=== PATIENT | male | born 1945 | race Caucasian/White ===

== ENCOUNTER 2017-09-02 09:58 | Emergency (ER) | payer MEDICARE, BC ==
[2017-09-02] MEDS ORDERED: Morphine INJ* 4 MG/ML 1 ML CARPUJECT IV ONE (10:39)
[2017-09-02] MEDS ORDERED: Ondansetron INJ* 2 MG/ML VIAL IV ONE (10:39)
[2017-09-02] MEDS ORDERED: LORazepam INJ* 2 MG/ML 1 ML VIAL IV ONE (11:55)
[2017-09-02] MEDS ORDERED: HYDROmorphone INJ* 1 MG/ML CARPUJECT SYRINGE IV ONE (11:55)
--- NOTE | 2017-09-02 12:59 | ED ---
Francisco Arias Stephanie, scribed for Amanuel Cruz MD on 09/02/17 at 1043 . Back Pain - HPI Summary HPI Summary: The pt is a 72 y/o M presenting to the ED with c/o back pain that began after lifting heavy wood. The pt reports the pain began on the R side of his lower back and radiates to his middle and L back and down the L leg. The pain is described as a sharp character and as intermittent spasms. He rates the pain as a 10 in severity. Symptoms include sleep disturbances, radiating pain to lower extremities, and pain within the gluteal region. The pt denies urinary incontinence, hematuria and GI incontinence. The pt reports a history of lower lumbar subluxation. He denies completing x-rays for this incident. The pt received a muscle relaxer from PCP. The patients reports that the pt has restless leg syndrome. Aggravating factors include sitting up. The pt reports having a liver transplant 1.5 years ago. - History of Current Complaint Chief Complaint: EDBackInjuryPain Stated Complaint: BACK PAIN,NO SLEEP FOR 1 WEEK Time Seen by Provider: 09/02/17 10:17 Hx Obtained From: Patient Onset/Duration: Sudden Onset, Lasting Days - 5, Still Present Onset/Duration: Started Days Ago - 5, Still Present Timing: Constant Back Pain Location: Is Discrete @ - R and L lower back, Radiates To - lower extremities bilaterally Severity Currently: Severe Pain Intensity: 10 Pain Scale Used: 0-10 Numeric Character: Sharp, Spasmodic Aggravating Symptom(s): Movement, Other - sitting up Alleviating Symptom(s): Nothing Associated Signs And Symptoms: Positive: Other - loewr extremity pain, gluteal pain. Negative: Swelling - calf - Allergies/Home Medications Allergies/Adverse Reactions: Allergies Allergy/AdvReac Type Severity Reaction Status Date / Time Bee Venom Allergy Swelling Verified 02/20/16 11:35 PMH/Surg Hx/FS Hx/Imm Hx Endocrine/Hematology History: Denies: Hx Anticoagulant Therapy, Hx Diabetes Cardiovascular History: Reports: Hx Hypertension - ON MEDS Denies: Hx Pacemaker/ICD, Other Cardiovascular Problems/Disorders Respiratory History: Denies: Other Respiratory Problems/Disorders GI History: Comment Only: Other GI Disorders - ULCERATIVE COLITIS, Hep C, liver transplant History: Denies: Hx Renal Disease, Other Problems/Disorders Musculoskeletal History: Denies: Other Musculoskeletal History Sensory History: Reports: Hx Cataracts - STUART, Hx Contacts or Glasses - GLASSES Denies: Hx Hearing Aid Opthamlomology History: Reports: Hx Cataracts - STUART, Hx Contacts or Glasses - GLASSES Psychiatric History: Denies: Hx Panic Disorder - Cancer History Cancer Type, 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 liver bx, 1996, [facility]. cyst removed from back;. 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 [facility], 2010, RIGHT SHOULDER. HERNIA, [facility], 2013. HERNIA 2011;. SHOULDER ATHROSCOPY 2009; Hx Anesthesia Reactions: No Infectious Disease History: No Infectious Disease History: Reports: Hx Hepatitis - HEP C Denies: Traveled Outside the [place] in Last 30 Days - Family History Known Family History: Positive: Unknown - Pt denies knowledge of family history because he is adopted. - Social History Occupation: Retired Lives: With Family Alcohol Use: None Substance Use Type: Reports: None Smoking Status (MU): Never Smoked Tobacco Review of Systems Positive: Other - sleep disturbances. Negative: Fever Negative: hematuria, incontinence Positive: Other - lower back pain, lower extremity pain, gluteal pain. All Other Systems Reviewed And Are Negative: Yes Physical Exam - Summary Physical Exam Summary: General: well-appearing, moderate pain distress that worsens with movement Skin: warm, color reflects adequate perfusion, dry Head: normal Eyes: EOMI, DAVON ENT: normal Neck: supple, nontender Respiratory: CTA, breath sounds present Cardiovascular: RRR Abdomen: soft, nontender hernia Bowel: present Musculoskeletal: strength/ROM intact, tender lower back, 5/5 ROM, patellar reflexes intact bilaterally Neurological: normal, sensory/motor intact, A&O x3 Psychological: affect/mood appropriate Triage Information Reviewed: Yes Vital Signs On Initial Exam: Initial Vitals Temp Pulse Resp BP Pulse Ox 98.9 F 82 19 140/73 96 09/02/17 10:03 09/02/17 10:03 09/02/17 10:03 09/02/17 10:03 09/02/17 10:03 Vital Signs Reviewed: Yes Diagnostics - Vital Signs Vital Signs Temp Pulse Resp BP Pulse Ox 09/02/17 10:03 98.9 F 82 19 140/73 96 - Laboratory Lab Statement: Any lab studies that have been ordered have been reviewed, and results considered in the medical decision making process. Back Pain Course/Dx - Course Course Of Treatment: IMPROVED IN ED. NO NEUROLOGIC DEFICIT. F/U WITH PMD; RETURN IF WORSE. - Diagnoses Provider Diagnoses: Low back pain Discharge - Discharge Plan Condition: Stable Disposition: HOME Prescriptions: Lorazepam [Ativan 1 MG TAB] 1 mg PO TID PRN #15 tab MDD 3 PRN Reason: Pain oxyCODONE TAB* [Roxycodone TAB 5 mg*] 5 mg PO Q4H PRN #30 tab MDD 6 PRN Reason: Pain Patient Education Materials: Acute Low Back Pain (ED) Referrals: Julito Viveros MD [Primary Care Provider] - Additional Instructions: FOLLOW UP WITH YOUR DOCTOR. RETURN TO THE EMERGENCY DEPARTMENT FOR ANY WORSENING OF YOUR CONDITION WEAKNESS , NUMBNESS, DIFFICULTY CONTROLLING BOWEL OR BLADDER OR QUESTIONS OR CONCERNS. The documentation as recorded by the Francisco hester Stephanie accurately reflects the service I personally performed and the decisions made by me, Amanuel Cruz MD.
[2017-09-02 13:01] VITALS: BP 133/67
== END 2017-09-02 13:10 | disposition home or self-care (01) ==
LOC: ED 09:58
DX: M54.5 Low back pain (principal); G47.9 Sleep disorder, unspecified
CPT/HCPCS: 96374; 96375; 99282; J1170; J2060; J2270; J2405